=== PATIENT | female | born 1980 | race Caucasian/White ===

== ENCOUNTER 2022-01-21 13:33 | Outpatient (CLI) | payer OTHER, SELFPAY ==
--- NOTE | 2022-01-21 | ECHO_ITS ---
Patient Info Name: Yadira Collier Age: 41 years : 1980 Gender: Female Ht: 62 in Wt: 130 lbs BSA: 1.62 m2 HR: 67 bpm BP: 136 / 101 mmHg Technical Quality: Good Exam Date: 01/21/2022 2:13 PM Exam Location: [facility] [place] Patient Status: Outpatient Admit Date: 01/21/2022 Staff Ordering Physician: Yosef Pittman MD Stitcher Special Machine: Horace Rojas RDCS Attending Provider: Yosef Pittman MD Referring Physician: Zain BARR; Exam Type: CA echo doppler color flow Study Info Indications R01.0 - Benign and innocent cardiac murmurs Complete two-dimensional, color flow and Doppler transthoracic echocardiogram is performed. Summary 1. Complete two-dimensional, color flow and Doppler transthoracic echocardiogram is performed. 2. Left ventricular chamber dimension is normal. 3. Left ventricular systolic function is normal, estimated at 60-65%. 4. The left ventricular diastolic function is normal. 5. E/e' 6 is not elevated. 6. There is trace tricuspid valve regurgitation. Left Ventricle E/e' 6 is not elevated. Left ventricular chamber dimension is normal. Left ventricular systolic function is normal, estimated at 60-65%. The left ventricular diastolic function is normal. Right Ventricle Right ventricular systolic function is normal and with normal TAPSE 1.9 cm. Right ventricular chamber dimension is normal. Left Atria Left atrial chamber dimension is normal. Right Atria Right atrial chamber dimension is normal. Aortic Valve The aortic valve is trileaflet. There is no aortic valve stenosis. There is no aortic valve regurgitation. Pulmonic Valve There is no pulmonic regurgitation. Mitral Valve There is no mitral valve stenosis. There is no mitral valve regurgitation. Tricuspid Valve There is trace tricuspid valve regurgitation. RVSP is not calculated due to an inadequate TR jet. Pericardium/Pleural There is no pericardial effusion. Inferior Vena Cava Normal inferior vena cava with >50% collapse upon inspiration consistent with normal right atrial pressure, 5 mmHg. Aorta The aortic root size at the sinus of Valsalva is normal. Left Ventricular Outflow Tract Name Value Normal LVOT 2D LVOT Diameter 1.7 cm LVOT Doppler LVOT Peak Velocity 131 cm/s LVOT Peak Gradient 7 mmHg LVOT Mean Gradient 4 mmHg LVOT VTI 25 cm LVOT VTI/AV VTI Ratio 1.0 LVOT Stroke Volume 61 ml LVOT CO 3.7 l/min LVOT CI 2.3 l/min/m2 Mitral Valve Name Value Normal MV Doppler MV Decel [place] 480 cm/s2 MV PHT 52 ms MV Area (PHT)
== END 2022-01-21 13:34 | disposition home or self-care (01) ==
LOC: ANHCARD 13:36
PROVIDERS: PCP Emergency Medicine; Visit Provider Emergency Medicine
DX: R01.0 Benign and innocent cardiac murmurs (principal)
CPT/HCPCS: 93306

== ENCOUNTER → 2022-01-21 15:02 | Outpatient (CLI) | payer OTHER, SELFPAY ==
--- NOTE | ~2022-01-21 | US_ITS ---
EXAMINATION: US retroperitoneal duplex ltd DATE: 01/21/2022 15:33 INDICATION: Hypertensive urgency TECHNIQUE: Multiple grayscale, color Doppler, and pulsed Doppler images of the kidneys and renal baldo chip were obtained. COMPARISON: None. FINDINGS: The aorta peak systolic velocity is 119 cm/s. The right renal artery peak systolic velocity is 150 cm /s in the proximal segment, 169 cm/s in the mid segment, and 159 cm/s in the distal segment. The left renal artery peak systolic velocity is 159 cm/s in the proximal segment, 164 cm/s in the mid segment , and 75 cm/s in the distal segment. IMPRESSION: 1. No Doppler evidence of renal artery stenosis. Reviewed, dictated and finalized at location A.
== END ==
PROVIDERS: PCP Emergency Medicine; Visit Provider Emergency Medicine
DX: I16.0 Hypertensive urgency (principal)
CPT/HCPCS: 93976

== ENCOUNTER → 2022-04-07 12:46 | Outpatient (CLI) | payer OTHER, SELFPAY ==
--- NOTE | ~2022-04-07 | US_ITS ---
EXAMINATION: US thyroid DATE: 04/07/2022 13:06 INDICATION: Diane's thyroiditis TECHNIQUE: Multiple ultrasound images of the thyroid were obtained. COMPARISON: None. FINDINGS: The right thyroid lobe measures 3.8 x 1.5 x 1.5 cm. The left thyroid lobe measures 3.9 x 1.2 x 1.4 c m. Thyroid isthmus measures 2-3 mm in maximal thickness. Likely benign 2-3 mm hypoechoic nodule at th e inferior left thyroid more likely solid and cystic but too small to definitively characterize. Ther e is diffuse heterogeneous echogenicity with coarsened echotexture and mildly increased vascular flow throughout the thyroid consistent with provided history of Diane thyroiditis. IMPRESSION: 1. Heterogeneous thyroid with coarsened echotexture and mildly increased vascular flow consistent wit h provided history of Diane thyroiditis. 2. 2-3 mm right thyroid nodule, unclear whether solid or cystic and which is well below the recommend ed threshold for either either biopsy or follow-up imaging. Reviewed, dictated and finalized at location A. PAN OPERATOR IMPRESSION: 1. Heterogeneous thyroid with coarsened echotexture and mildly increased vascul ar flow consistent with provided history of Diane thyroiditis. 2. 2-3 mm right thyroid nodule, unclear whether solid or cystic and which is we ll below the recommended threshold for either either biopsy or follow-up tyler frye
== END ==
PROVIDERS: PCP Emergency Medicine; Visit Provider Emergency Medicine
DX: E06.3 Autoimmune thyroiditis (principal); E04.1 Nontoxic single thyroid nodule
CPT/HCPCS: 76536

== ENCOUNTER → 2022-10-09 16:58 | Outpatient (CLI) | payer OTHER, SELFPAY ==
--- NOTE | ~2022-10-09 | MR_ITS ---
EXAMINATION: MR brain/brain stem wo con DATE: 10/09/2022 17:32 INDICATION: Migraine headache. TECHNIQUE: Magnetic resonance imaging (MRI) of the brain and brainstem was performed without intraven ous contrast. COMPARISON: None. FINDINGS: There are a few foci of nonspecific increased T2-weighted signal intensity in the cerebral white matter, which is within normal limits for the patient's age. There is no acute ischemic infarc t or intracranial hemorrhage. The ventricles are normal in size. The orbits are normal. There is mild mucosal thickening in the paranasal sinuses. The mastoid air cells are normal. IMPRESSION: 1. Normal aging brain. Reviewed, dictated and finalized at location E. IMPRESSION: 1. Normal aging brain.
== END ==
PROVIDERS: PCP Nurse Practitioner; Visit Provider Nurse Practitioner
DX: G43.009 Migraine without aura, not intractable, without status migrainosus (principal)
CPT/HCPCS: 70551

== ENCOUNTER → 2023-04-14 14:49 | Outpatient (CLI) | payer OTHER, SELFPAY ==
--- NOTE | ~2023-04-14 | MM_ITS ---
EXAMINATION: MM screening james BI w matteo HISTORY: Baseline screening mammogram TECHNIQUE: Craniocaudal and mediolateral oblique 3-D tomosynthesis images were obtained and synthetic 2-D images were generated. CAD analysis was submitted and interpreted. COMPARISON: None, baseline BREAST PARENCHYMAL COMPOSITION: The breasts are heterogeneously dense, which may obscure small masses . FINDINGS: No suspicious mass, calcification, or architectural distortion are identified in either nidia ast to suggest malignancy. IMPRESSION: 1. No mammographic evidence of malignancy. 2. Recommend routine screening mammography in one year. BI-RADS Category 1: Negative Reviewed, dictated and finalized at location A. NICAL SERVICES REPRESENTATIVE
== END ==
PROVIDERS: PCP Nurse Practitioner; Visit Provider Obstetrics & Gynecology
DX: Z12.31 Encounter for screening mammogram for malignant neoplasm of breast (principal)
CPT/HCPCS: 77063; 77067

== ENCOUNTER 2024-09-30 12:02 | Emergency (ER) | payer OTHER, SELFPAY | END 2024-09-30 12:15 | disposition home or self-care (01) | LOC: EXPGOSH 11-21 12:12 | DX: Z53.21 Procedure and treatment not carried out due to patient leaving prior to being seen by health care provider (principal) | CPT/HCPCS: 99199 ==